=== PATIENT | female | born 1990 | race Caucasian/White ===

== ENCOUNTER 2017-07-22 03:25 | Emergency (ER) | payer OTHER ==
[~2017-07-22] VITALS: Ht 162.6 cm; Wt 59.0 kg
[2017-07-22 03:28] VITALS: BP_SYST 127
[2017-07-22 03:48] VITALS: BP_SYST 129
== END 2017-07-22 03:48 | disposition home or self-care (01) ==
LOC: SED 03:25
DX: Z04.1 Encounter for examination and observation following transport accident (principal); V89.2XXA Person injured in unspecified motor-vehicle accident, traffic, initial encounter; Y93.9 Activity, unspecified; Y92.488 Other paved roadways as the place of occurrence of the external cause; Y99.8 Other external cause status
CPT/HCPCS: 99283